=== PATIENT | female | born 1970 ===

== ENCOUNTER 2023-04-13 16:34 | Emergency (ER) | payer OTHER ==
[~2023-04-13] VITALS: Ht 165.1 cm; Wt 50.9 kg
[2023-04-13 16:59] VITALS: BP 100/59; TEMP 98.2
[2023-04-13] MEDS ORDERED: Ketorolac 30 MG/ML VIAL IM ONE (17:15)
[2023-04-13] MEDS ORDERED: FLEXERIL 1010 MG/TAB PO (18:21)
[2023-04-13 18:29] VITALS: PULSE 64
== END 2023-04-13 18:29 | disposition home or self-care (01) ==
LOC: COL.ER 16:34
DX: S39.012A Strain of muscle, fascia and tendon of lower back, initial encounter (principal); W10.9XXA Fall (on) (from) unspecified stairs and steps, initial encounter; Y93.01 Activity, walking, marching and hiking
CPT/HCPCS: J1885; J2360